=== PATIENT | female | born 1975 | race Caucasian/White ===

== ENCOUNTER 2017-03-18 21:52 | Emergency (ER) | payer MEDICAID ==
[~2017-03-18] VITALS: Ht 157.5 cm; Wt 86.2 kg
[2017-03-18 22:19] VITALS: BP 123/76
[2017-03-18 22:24] VITALS: BP 123/76
--- NOTE | 2017-03-18 22:25 | NUR ---
SENT BACK TO [facility] IN STABLE CONDITION, A/W FOR BED, ERMS NOTED
--- NOTE | 2017-03-19 01:00 | NUR ---
PATIENT CALLED FOR BED, NO ANSWER.
--- NOTE | 2017-03-19 01:10 | NUR ---
FOR THE SECOND TIME , NO RESPONSE
--- NOTE | 2017-03-19 01:20 | NUR ---
PATIENT CALLED FOR THE THIRD TIME, NO RESPONSE.PATIENT LEFT WITHOUT BEING SEEN BY DR. GUILLEN. NO FURTHER CARE PROVIDED FOR PATIENT.
== END 2017-03-19 01:20 | disposition left against medical advice (07) ==
LOC: MED 21:52
DX: R05 Cough (principal); R09.89 Other specified symptoms and signs involving the circulatory and respiratory systems; Z53.21 Procedure and treatment not carried out due to patient leaving prior to being seen by health care provider

== ENCOUNTER 2017-09-22 22:31 | Emergency (ER) | payer MEDICAID ==
[~2017-09-22] VITALS: Ht 157.5 cm; Wt 94.8 kg
[2017-09-22 22:39] VITALS: BP 148/71
--- NOTE | 2017-09-22 22:42 | NUR ---
PATIENT PRESENTS TO ED WITH RLQ PAIN RADIATING TO RIGHT LOWER BACK X2 DAYS WITH NAUSEA. PT DENIES V/D; SKIN IS PINK/WARM/DRY; AAOX4 WITH EVEN AND STEADY GAIT; LUNGS CLEAR BL; HR EVEN AND REGULAR; PT DENIES ANY FEVER, CP, SOB, OR COUGH AT THIS TIME; PATIENT STATES PAIN OF 7/10 AT THIS TIME; VSS; PATIENT POSITIONED FOR COMFORT; HOB ELEVATED; BEDRAILS UP X2; BED DOWN. ER MD MADE AWARE OF PT STATUS. CONTINUE TO MONITOR.
--- NOTE | 2017-09-22 22:42 | NUR ---
TO BED #5 AMB, REPORT GIVEN TO PILO SKELTON.
--- NOTE | 2017-09-23 00:17 | NUR ---
Dr. Schultz evaluating patient at bedside.
[2017-09-23] MEDS ORDERED: KETOROLAC 30 MG/ML VIAL IM ONE (00:25)
[2017-09-23] MEDS ORDERED: cefTRIAXone 1,000 MG in LIDOCAINE MPF 1% - **ER/OR** 2.1 ML IM ONE (00:25)
[2017-09-23 01:05] VITALS: BP 137/97
--- NOTE | 2017-09-23 01:05 | NUR ---
Patient discharged with v/s stable. Written and verbal after care instructions given and explained. Patient alert, oriented and verbalized understanding of instructions. Ambulatory with steady gait. All questions addressed prior to discharge. ID band removed. Patient advised to follow up with PMD. Rx of Ibuprofen and Cipro given. Patient educated on indication of medication including possible reaction and side effects. Opportunity to ask questions provided and answered.
--- NOTE | 2017-09-26 11:30 | NUR ---
CALLED AT 1132 AM ON 09/26/2017 LEFT VOICE MAIL.
== END 2017-09-23 01:05 | disposition home or self-care (01) ==
LOC: MED 22:31
DX: N12 Tubulo-interstitial nephritis, not specified as acute or chronic (principal); I10 Essential (primary) hypertension
CPT/HCPCS: 81002; 81025; 87086; 87186; 96372; 99284; J0696; J1885; J2001

== ENCOUNTER 2017-12-28 09:00 | Inpatient (IN) | payer MEDICAID ==
[~2017-12-28] VITALS: Ht 157.5 cm; Wt 93.9 kg
[2017-12-28 09:05] VITALS: BP 147/86
--- NOTE | 2017-12-28 09:15 | NUR ---
PT. CAME INTO THE ED DUE TO UMBILICAL PAIN X LAST NIGHT. PT. DENIES ANY N/V/D. PT STATES " I FEEL PRESSURE WHEN I TRY TO GO POOP BUT I WENT YESTERDAY". RR EVEN AND UNLABORED. PT. HAS 9/10 PAIN IN UMBILICAL REGION THAT IS NON RADIAITING AND CONSTANT SINCE LAST NIGHT. ABD IS ROUND AND SOFT AND TENDER UPON PALPATION OF UMBILICAL REGION. ER MD NOTIFIED. WILL CONTINUE TO MONITOR. SAFETY PRECAUTIONS INITIATED.
[2017-12-28] MEDS ORDERED: KETOROLAC 30 MG/ML VIAL IVP ONE (09:30)
--- NOTE | 2017-12-28 09:34 | NUR ---
PT. TAKEN TO CT SCAN VIA WHEELCHAIR AT THIS TIME.
--- NOTE | 2017-12-28 09:42 | NUR ---
returned from ct via [facility]
[2017-12-28 10:11] LABS: BASOPHILS # (AUTO) 0.1 K/uL (0.00-0.22); BASOPHILS % (AUTO) 0.3 % (0.0-2.0); EOSINOPHILS % (AUTO) 0.2 % (0.0-4.0); HEMATOCRIT 42.6 % (36-48); HEMOGLOBIN 13.8 g/dL (12.0-16.0); LYMPHOCYTES # (AUTO) 2.2 K/uL (2.5-16.5); LYMPHOCYTES % (AUTO) 12.6 % (20.5-51.1); MEAN CORPUSCULAR HEMOGLOBIN 28 pg (27-31); MEAN CORPUSCULAR HGB CONC 32 g/dL (33-37); MEAN CORPUSCULAR VOLUME 85.1 fL (80-94); MONOCYTES # (AUTO) 0.8 K/uL (0.8-1.0); MONOCYTES % (AUTO) 4.8 % (1.7-9.3); NEUTROPHILS # (AUTO) 13.9 K/uL (1.8-7.7); NEUTROPHILS % (AUTO) 82.1 % (42.2-75.2); PLATELET COUNT (AUTO) 309 K/uL (140-450); RED BLOOD CELL COUNT(AUTO) 5.01 MIL/uL (4.20-5.40); RED CELL DISTRIBUTION WIDTH 15.1 % (11.6-13.7)
[2017-12-28 10:15] LABS: APPEARANCE,URINE HAZY (CLEAR); BILIRUBIN,URINE NEGATIVE (NEGATIVE); BLOOD, URINE 1+ (NEGATIVE); COLOR,URINE YELLOW (YELLOW); LEUKOCYTE ESTERASE ,URINE 1+ (NEGATIVE); NITRITE, URINE NEGATIVE (NEGATIVE); PH,URINE 6.5 (5.0-9.0); UGLUCOSE NEGATIVE (NEGATIVE)
[2017-12-28 10:48] LABS: RBC,URINE 0-5 (RARE) /HPF (0-5)
[2017-12-28 10:49] LABS: WBC,URINE 0-5 (RARE) /HPF (0-5)
--- NOTE | 2017-12-28 10:50 | NUR ---
PT. RESTING COMFORTABLY IN BED, RR EVEN AND UNLABORED. VSS. WILL CONTINUE TO MONITOR
[2017-12-28 11:01] LABS: ALBUMIN 3.6 g/dL (3.4-5.0); ANION GAP 9.3 (8-16); CARBON DIOXIDE 26.9 mmol/L (21-32); CREATININE 1.1 mg/dL (0.6-1.3); POTASSIUM 4.2 mmol/L (3.5-5.1); TOTAL BILIRUBIN 0.8 mg/dL (0.0-1.0)
--- NOTE | 2017-12-28 11:44 | NUR ---
ULTRASOUND AT BEDSIDE AT THIS TIME. WILL CONTINUE TO MONITOR
--- NOTE | 2017-12-28 12:43 | NUR ---
PT. RESTING COMFORTABLY IN BED, RR EVEN AND UNLABORED. PROVIDED WITH A CUP OF WATER, TOLERATED WELL. WILL CONTINUE TO MONITOR. VSS
[2017-12-28] MEDS ORDERED: PIPERACILLIN/TAZOBACTAM 3.375 GM in DEXTROSE 5% 50 ML IV ONE (13:05)
[2017-12-28] MEDS ORDERED: MORPHINE SULFATE 4 MG/ML SYR IVP ONE (13:05)
[2017-12-28] MEDS ORDERED: ONDANSETRON 4 MG/2 ML VIAL IVP ONE (13:05)
[2017-12-28] MEDS ORDERED: PIPERACILLIN/TAZOBACTAM 3.375 GM VIAL IV ONE (13:12)
[2017-12-28] MEDS ORDERED: LORazepam 2 MG/ML VIAL IM/IVP PRN (13:40)
[2017-12-28] MEDS ORDERED: DOCUSATE SODIUM 100 MG GELCAP PO PRN (13:40)
[2017-12-28] MEDS ORDERED: ONDANSETRON 4 MG/2 ML VIAL IM/IVP PRN (13:40)
--- NOTE | 2017-12-28 13:41 | NUR ---
pt. resting comfortably in bed, rr even and unlabored. vss. will continue to monitor.
--- NOTE | 2017-12-28 14:06 | NUR ---
Patient will be admitted to care of dr. gaming . Admited to MED SURG . Will go to room 105A. Belongings list completed. Report to COSTA SANCHEZ .
[2017-12-28 14:07] LABS: PROTHROMBIN TIME 9.2 secs (10.8-13.4)
--- NOTE | 2017-12-28 14:08 | NUR ---
PT ARRIVED ON THE UNIT WITH 2 E/R NURSES. PT IN A WHEELCHAIR. AMBULATES WELL. STEADY GAIT. SKIN INTACT. IV ON L AC 22G SL. PT DENIES PAIN AT THIS TIME. PT STATES SHE IS THIRSTY. WILL SEE IF MD ORDERED A DIET. OFFERED HER SOME ICE CHIPS TO KEEP HER MOUTH MOIST. ADMINISTERED BROWN SOCKS. MRSA SCREENING DONE. WILL CONTINUE TO MONITOR PT.
[2017-12-28] MEDS: DEXT 5% / NACL 0.45% 1,000 ML IV PRN ×2 (14:29→22:57)
[2017-12-28 14:45] LABS: MAGNESIUM 2.2 mg/dL (1.8-2.4); PHOSPHORUS 2.6 mg/dL (2.5-4.9); THYROID STIMULATING HORMONE 1.25 uIU/mL (0.34-3.74)
[2017-12-28 15:00] VITALS: BP 113/72
[2017-12-28] MEDS ORDERED: METOPROLOL 25 MG TAB PO SCH (15:00)
--- NOTE | 2017-12-28 15:20 | NUR ---
SCHEDULED METOPROLOL ORDERED. CONSULTED WITH THE MD. BP LOW. LAST ONE AT 113/72. HOLD THE METOPROLOL PER MD.
[2017-12-28 16:00] VITALS: BP 118/65
[2017-12-28] MEDS: PIPER/TAZO 3.375GM/D5W PREMIX 50 ML IV SCH ×2 (17:57→23:01)
[2017-12-28] MEDS: HYDROcodone/APAP 5/325 MG 1 TAB TAB PO PRN ×2 (18:01→22:56)
--- NOTE | 2017-12-28 18:07 | NUR ---
ADMINISTERED NORCO FOR MODERATE PAIN 5/10 AND ZOSYN, SCHEDULED ABX. PT TOLERATED WELL. PT GETTING A CLEAR LIQ DIET. WILL BE NPO AT MIDNIGHT. WILL ENDORSE.
[2017-12-28] MEDS: ACETAMINOPHEN 325 MG TAB PO PRN (18:51)
--- NOTE | 2017-12-28 18:51 | NUR ---
PT C/O BEING HOT. CHECKED TEMP ORAL 100.4F. ADMINISTERED TYLENOL. STARTED COOLING MEASURES. WILL CONTINUE TO MONITOR PT.
--- NOTE | 2017-12-28 19:30 | NUR ---
RECEIVED BEDSIDE REPORT FROM RN LAURA, PT AWAKE IN BED, NOTED TO BE SWEATING AND STATES "I FEEL HOT". PT TEMP 99.9 F. IV IN L AC, 22G, INFUSING D5 AND 1/2 NS AT 120 ML/HR. PT ON RA, DENIES PAIN AT THIS TIME, ABLE TO MAKE NEEDS KNOWN. UPDATED BOARD, CALL LIGHT WITHIN REACH. EXPLAINED PLAN OF CARE. WILL CONTINUE TO MONITOR.
--- NOTE | 2017-12-28 20:00 | NUR ---
URINE SAMPLE COLLECTED AND SENT TO LAB. URINE DARK YELLOW IN COLOR.
[2017-12-28] MEDS ORDERED: ZOLPIDEM 5 MG TAB PO PRN (21:00)
[2017-12-28 21:58] LABS: BARBITURATE, URINE NEG. ng/ml (NEG <=200); BENZODIAZEPINE, URINE NEG. ng/mL (NEG <=200); CANNABINOID, URINE NEG. ng/mL (NEG <=50); COCAINE, URINE NEG. ng/mL (NEG <=300); OPIATE, URINE POS. ng/mL (NEG <=2000); PHENCYCLIDINE SCREEN,URINE NEG. ng/mL (NEG <=25)
--- NOTE | 2017-12-28 22:56 | NUR ---
PT C/O PAIN 6/10 IN ABDOMEN, WILL MEDICATE ACCORDING TO MD ORDER.
[2017-12-29] VITALS: BP 128/66
--- NOTE | 2017-12-29 | NUR ---
PT PLACED ON NPO STATUS, NO SCHEDULE FOR SX, CHARGE NURSE AWARE, WILL ENDORSE TO DAY SHIFT NURSE TO COMPLETE PRE OP CHECK LIST AND HAVE PT SIGN CONSENT FOR SURGERY ONCE PT IS SCHEDULED FOR SURGERY.
--- NOTE | 2017-12-29 02:30 | NUR ---
PT AMBULATED TO RESTROOM, URINATED X 1. STEADY GAIT. HELPED BACK INTO BED, CALL LIGHT WITHIN REACH, WILL CONTINUE TO MONITOR.
--- NOTE | 2017-12-29 04:30 | NUR ---
PT ASLEEP IN BED NO SIGNS OF DISTRESS, WILL CONTINUE TO MONITOR.
[2017-12-29] MEDS: PIPER/TAZO 3.375GM/D5W PREMIX 50 ML IV SCH ×4 (05:00→23:06)
--- NOTE | 2017-12-29 05:00 | NUR ---
DUE MEDICATION GIVEN, CALL LIGHT WITHIN REACH, WILL CONTINUE TO MONITOR.
--- NOTE | 2017-12-29 07:22 | NUR ---
RECEIVED REPORT FROM THE BAKERY WORKER NURSE AT BEDSIDE FOR CONTINUITY OF CARE. PT IS SLEEPING. NO SIGNS OF DISTRESS. WILL COME BACK AND ASSESS PT.
[2017-12-29 07:23] LABS: CHOL/HDL RATIO 2.7 (1-4.5)
--- NOTE | 2017-12-29 07:33 | NUR ---
ENDORSED PT TO DAY SHIFT NURSE, PT STABLE.
--- NOTE | 2017-12-29 07:52 | NUR ---
PT'S V/S WITHIN NORMAL RANGE. HAD TO GO TO THE BATHROOM SO I DC'D THE IVF. NO BM BUT URINATED. ASSISTED BACK TO BED. RECONNECTED PT TO THE IVF. PT BACK IN BED, COMFORTABLE. IV SITE IS LAC 22G D5 1/2 NS @ 120ML/HR. PT IS AOX4, AMBULATING WELL. SKIN INTACT. LBM 12/27. SOME ABD DISCOMFORT BUT REFUSES PAIN MED. TOLERABLE. PLAN FOR TODAY: DR MALDONADO WOULD LIKE TO MONITOR LABS AND SEE IF SHE DOES NEED SURGERY OR NOT. WILL CONTINUE TO MONITOR PT.
[2017-12-29 08:00] VITALS: BP 103/56
[2017-12-29 08:22] LABS: T4 (THYROXINE) 7.6 ug/dL (4.5-12.0)
--- NOTE | 2017-12-29 08:37 | NUR ---
PATIENT HAS BEEN SCREENED AND CATEGORIZED HIGH NUTRITION RISK. PATIENT WILL BE SEEN WITHIN 1-2 DAYS OF ADMISSION. 12/29/17 12/30/[address]
[2017-12-29] MEDS ORDERED: METOPROLOL 25 MG TAB PO SCH (09:00)
--- NOTE | 2017-12-29 09:04 | NUR ---
CM NOTE ADMISSION CHART REVIEW DONE. INITIAL REVIEW FAXED TO [facility] [phone] [place] PH# [phone] AND TO [facility] [phone] PH# [phone].
[2017-12-29 10:42] LABS: BASOPHILS % (AUTO) 0.2 % (0.0-2.0); EOSINOPHILS # (AUTO) 0.1 K/uL (0-0.4); EOSINOPHILS % (AUTO) 0.8 % (0.0-4.0); HEMATOCRIT 38.3 % (36-48); HEMOGLOBIN 12.3 g/dL (12.0-16.0); MEAN CORPUSCULAR HEMOGLOBIN 28 pg (27-31); MEAN CORPUSCULAR HGB CONC 32 g/dL (33-37); MONOCYTES # (AUTO) 1.4 K/uL (0.8-1.0); MONOCYTES % (AUTO) 7.9 % (1.7-9.3); NEUTROPHILS # (AUTO) 14.4 K/uL (1.8-7.7); NEUTROPHILS % (AUTO) 80.1 % (42.2-75.2); PLATELET COUNT (AUTO) 276 K/uL (140-450); RED BLOOD CELL COUNT(AUTO) 4.46 MIL/uL (4.20-5.40); RED CELL DISTRIBUTION WIDTH 15.1 % (11.6-13.7)
[2017-12-29 10:57] LABS: MAGNESIUM 2.1 mg/dL (1.8-2.4); PHOSPHORUS 2.2 mg/dL (2.5-4.9)
[2017-12-29] MEDS: HYDROcodone/APAP 5/325 MG 1 TAB TAB PO PRN (11:00)
--- NOTE | 2017-12-29 11:00 | NUR ---
PT C/O PAIN. ADMINISTERED NORCO AND COLACE. PT TOLERATED WELL. WILL CONTINUE TO MONITOR PT.
[2017-12-29] MEDS ORDERED: SODIUM PHOS / POTASSIUM PHOS 1 PKT PDR PO SCH (12:30)
--- NOTE | 2017-12-29 12:57 | NUR ---
DR MALDONADO WAS HERE TO ASSESS PT. ORDERED ANOTHER CT OF ABD W/ CONTRAST TO DETERMINE IF SHE REALLY DOES NEED SURGERY. ADMINISTERED NEUTRA PHOS. EDUCATED PT ABOUT PAIN MANAGEMENT. WILL CONTINUE TO MONITOR PT.
[2017-12-29 13:15] LABS: ANION GAP 6.3 (8-16); CARBON DIOXIDE 28.2 mmol/L (21-32); CREATININE 1.3 mg/dL (0.6-1.3); POTASSIUM 3.5 mmol/L (3.5-5.1)
[2017-12-29] MEDS ORDERED: MORPHINE SULFATE 2 MG/ML SYR IVP PRN (13:35)
[2017-12-29] MEDS ORDERED: SIMETHICONE 80 MG TAB.CHEW PO SCH (14:00)
--- NOTE | 2017-12-29 14:35 | NUR ---
12/29/17 RD INITIAL ASSESSMENT COMPLETED PLEASE REFER TO NUTRITION ASSESSMENT UNDER CARE ACTIVITY FOR ESTIMATED NUTRITIONAL NEEDS. 1. CONTINUE NPO DIET MEDICALLY ADVISED 2. WHEN MEDICALLY CLEARED RECOMMEND CARDIAC DIET 3. RD TO FOLLOW-UP 3-5 DAYS, MODERATE RISK BIJU SMITH, RD
--- NOTE | 2017-12-29 14:55 | NUR ---
CONSENT FORM FOR CT W/ CONTRAST SIGNED AND IN THE CHART. Addendum: 12/29/17 at 1544 by Paty Ang RN IV STARTED ON L AC 20G FOR THE PROCEDURE. PT TOLERATED WELL.
--- NOTE | 2017-12-29 15:10 | NUR ---
WENT TO RADIOLOGY TO HAVE CT ABD W/ CONTRAST. PT IN STABLE CONDITION. Addendum: 12/29/17 at 1653 by Paty Ang RN WRONG TIME. ACTUAL TIME 1610. Addendum: 12/29/17 at 1658 by Paty Ang RN WRONG TIME. ACTUAL TIME 1620...
--- NOTE | 2017-12-29 15:41 | NUR ---
CALLED RADIOLOGY TO LET THEM KNOW THAT PT HAS A IV SITE L 20G SL AND CONSENT FORM SIGNED AND IN CHART.
[2017-12-29 16:00] VITALS: BP 105/57
--- NOTE | 2017-12-29 16:35 | NUR ---
CT ABD W/ CONTRAST DONE. PT REQUESTS WATER. ASKED DR HERNANDEZ RE DIET. PER , KEEP PT NPO. ONCE RESULTS COME IN, CONTACT DR MALDONADO. HE MAY TAKE PT TO THE OR FOR SURGERY, DEPENDING ON RESULTS. WILL KEEP MONITORING FOR RESULTS. FAMILY VISITING.
--- NOTE | 2017-12-29 17:30 | NUR ---
CHECKED ON PT. PT C/O PAIN. ASKED IF SHE WANTED ANOTHER PAIN RELIEVER OR ATIVAN. PT REFUSED. WILL CONTINUE TO MONITOR PT.
--- NOTE | 2017-12-29 18:50 | NUR ---
RESULTS OF CT WAS BROUGHT OVER BY LEGUILLON DEBEADER. GAVE REPORT TO DR COLE. DR COLE CALLED DR MALDONADO AND READ THE REPORT TO HIM. WILL AWAIT ORDERS.
--- NOTE | 2017-12-29 19:20 | NUR ---
ENDORSED PT TO THE CRACKLING PRESS OPERATOR NURSE AT BEDSIDE FOR CONTINUITY OF CARE. PT IS IN STABLE CONDITION.
--- NOTE | 2017-12-29 19:20 | NUR ---
RECEIVED BEDSIDE REPORT FROM DAY SHIFT RN, PT CRYING IN BED, ASKED WHY SHE IS CRYING, PT STATED "IM HUNGRY, I WANT TO EAT, IM IN PAIN, IM TIRED". EXPLAINED PLAN OF CARE, OFFERED PAIN MEDICATION. PT REFUSED PAIN MEDIATION. OFFERED WATER, OFFERED TO REPOSITION THE PT. PT ON RA, LEFT AC 22 G INFUSING D5 AND 1/2 NS, IV IN LEFT INNER ARM 22G, SL, DRESSING INTACT, PATENT. PT ON RA, UPDATED BORED, V/S ASSESSED. TEMP 101.3 HR 105. WILL MEDICATE WITH TYLENOL ACCORDING TO MD ORDER. CALL LIGHT WITH IN REACH, WILL CONTINUE TO MONITOR.
[2017-12-29] MEDS ORDERED: KETOROLAC 30 MG/ML VIAL IVP PRN (19:35)
[2017-12-29] MEDS: ACETAMINOPHEN 325 MG TAB PO PRN (19:50)
--- NOTE | 2017-12-29 19:50 | NUR ---
ADMINISTERED 650 MG TYLENOL FOR FEVER OF 101.3 F. WILL CONTINUE TO MONITOR.
--- NOTE | 2017-12-29 20:17 | NUR ---
PT C/O PAIN OFFERED TORADOL FOR BREAK THROUGH PAIN, MEDICATED WITH TORADOL ACCORDING TO MD ORDER.
--- NOTE | 2017-12-29 20:36 | NUR ---
DR MALDONADO AT BEDSIDE, EXPLAINED PLAN OF SX I&D. WILL HAVE PT SIGN CONSENT AND COMPLETE PRE-OP CHECKLIST, PT TO BE NPO AFTER MIDNIGHT. PT TO HAVE CT SCAN WITHOUT CONTRAST OF ABDOMEN AND PELVIS. PT ON , PT LEFT UNIT. Addendum: 12/29/17 at 2211 by Jihan Mejia RN WRONG PT DR MALDONADO AT BEDSIDE. BUT DID NOT MENTION SX.
--- NOTE | 2017-12-29 20:50 | NUR ---
PT BACK ON UNITSL. WILL CONTINUE TO MONITOR. Addendum: 12/29/17 at 2211 by Jihan Mejia RN WRONG PT. DISREGARD.
--- NOTE | 2017-12-29 23:35 | NUR ---
DUE ANTIBIOTIC GIVEN PT TOLERATED WELL, WILL CONTINUE TO MONITOR.
[2017-12-29 23:36] VITALS: BP 126/72
--- NOTE | 2017-12-29 23:40 | NUR ---
PT TEMP 97.0 HR 88. WILL CONTINUE TO MONITOR.
--- NOTE | 2017-12-30 02:00 | NUR ---
PT RESTING IN BED NO SIGNS OF DISTRESS, WILL CONTINUE TO MONITOR.
[2017-12-30] MEDS: PIPER/TAZO 3.375GM/D5W PREMIX 50 ML IV SCH ×2 (05:07→12:04)
--- NOTE | 2017-12-30 05:07 | NUR ---
PT SLEEPING IN BED, DUE ANTIBIOTIC WILL BE GIVEN. WILL CONTINUE TO MONITOR.
[2017-12-30 06:47] LABS: BASOPHILS % (AUTO) 0.2 % (0.0-2.0); EOSINOPHILS # (AUTO) 0.1 K/uL (0-0.4); EOSINOPHILS % (AUTO) 1.3 % (0.0-4.0); HEMATOCRIT 37.4 % (36-48); LYMPHOCYTES # (AUTO) 1.4 K/uL (2.5-16.5); LYMPHOCYTES % (AUTO) 13.8 % (20.5-51.1); MEAN CORPUSCULAR HEMOGLOBIN 28 pg (27-31); MEAN CORPUSCULAR HGB CONC 32 g/dL (33-37); MEAN CORPUSCULAR VOLUME 85.7 fL (80-94); MONOCYTES % (AUTO) 9.8 % (1.7-9.3); NEUTROPHILS # (AUTO) 7.7 K/uL (1.8-7.7); NEUTROPHILS % (AUTO) 74.9 % (42.2-75.2); PLATELET COUNT (AUTO) 279 K/uL (140-450); RED BLOOD CELL COUNT(AUTO) 4.36 MIL/uL (4.20-5.40); WHITE BLOOD COUNT (AUTO) 10.3 K/uL (4.8-10.8)
[2017-12-30 07:00] LABS: ANION GAP 6.8 (8-16); CARBON DIOXIDE 27.4 mmol/L (21-32); CREATININE 1.1 mg/dL (0.6-1.3); POTASSIUM 3.2 mmol/L (3.5-5.1)
[2017-12-30 07:06] LABS: MAGNESIUM 2.2 mg/dL (1.8-2.4); PHOSPHORUS 2.2 mg/dL (2.5-4.9)
--- NOTE | 2017-12-30 07:26 | NUR ---
ENDORSED PT DAY SHIFT NURSE. PT STABLE.
--- NOTE | 2017-12-30 07:29 | NUR ---
RECEIVED PT FROM EDGE GLUE MACHINE TENDER NURSE, SUMMER, PT IS ASLEEP LYING ON THE BED WITH MOTOR EQUIPMENT COMMANDING OFFICER AILS UP AND CALL LIGHT WITHIN REACH, BED IN LOW POSITION AND SAFETY PRECAUTION ENFORCED. PT HAS TWO IV LINES PLACED, ONE IN THE LEFT AC G. 20, INTACT ON SALINE LOCK, AND THE OTHER IV LINE IS ON THE LEFT FA G. 22 WITH D5 1/2 NS AT 120ML/HR RUNNING AND INTACT. RESPIRATION EVEN AND PT HAS NO SIGN OF DISTRESS NOTED. WILL CONTINUE TO MONITOR PT.
--- NOTE | 2017-12-30 07:35 | NUR ---
RECEIVED PT FROM SENIOR DESIGNER/ART DIRECTOR NURSE, AGUSTÍN, PT IS ASLEEP, 1:1 SITTER ON THE BEDSIDE. SUICIDE AND SAFETY PRECAUTION ENFORCED. RESPIRATIONS EVEN AND NO SIGN OF DISTRESS NOTED, BED IN LOW POSITION. PT HAS AN IV LINE ON SALINE LOCK ON THE RT FA G.20, INTACT. WILL CONTINUE TO MONITOR PT. Addendum: 12/30/17 at 1025 by Coral Bansal RN ABOVE NOTES WAS NOT FOR THE ABOVE NAMED PT.
[2017-12-30 08:00] VITALS: BP 107/54
--- NOTE | 2017-12-30 08:00 | NUR ---
PT IS AWAKE AND VITAL SIGNS WERE TAKEN AND ARE ALL WITHIN NORMAL LIMITS AND STABLE. PT DENIES PAIN AT THIS TIME. WILL CONTINUE TO MONITOR PT
[2017-12-30] MEDS ORDERED: SODIUM PHOS / POTASSIUM PHOS 1 PKT PDR PO SCH (08:15)
[2017-12-30] MEDS: CYCLOBENZAPRINE 10 MG TAB PO SCH ×2 (08:27→12:04)
--- NOTE | 2017-12-30 09:15 | NUR ---
PT VERBALIZED THAT SHE AGREES TO HAVE AN ULTRASOUND DONE TO HER, ACKNOWLEDGED AND WILL INFORM THE MD. Addendum: 12/30/17 at 1025 by Coral Bansal RN ABOVE NOTES WAS NOT FOR THE ABOVE NAMED PT.
--- NOTE | 2017-12-30 09:18 | NUR ---
INFORMED DR. COLE THAT THE PT SAID THAT SHE WANTS TO HAVE AN ULTRASOUND DONE TO HER TODAY, SAID THAT HE WILL PLACE THE ORDER. Addendum: 12/30/17 at 1026 by Coral Bansal RN ABOVE NOTES WAS NOT INTENDED FOR THE ABOVE NAMED PT.
--- NOTE | 2017-12-30 09:20 | NUR ---
CALLED RADIOLOGY AND SPOKE TO ROMI AND INFORMED HER ABOUT THE TRANSVAGINAL ULTRASOUND ORDERED FOR THE PT. ROMI ACKNOWLEDGED AND SAID THAT SHE WILL INFORM THE FORCE DISPATCHER. Addendum: 12/30/17 at 1024 by Coral Bansal RN ABOVE NOTES WAS NOT FOR THE NAMED PT.
--- NOTE | 2017-12-30 09:22 | NUR ---
PT LABS WERE SEEN AND PT'S K LEVEL IS 3.2 AND IS ON THE LOW SIDE, INFORMED DR. COLE ABOUT THE PT'S LOW K LEVEL AND MD SAID THAT HE WILL PLACE AN ORDER. ACKNOWLEDGED AND WILL FOLLOW THROUGH WITH THE ORDER.
--- NOTE | 2017-12-30 10:30 | NUR ---
ASSISTED PT TO THE BATHROOM AND ASSISTED BACK TO THE BED AND MADE COMFORTABLE.
--- NOTE | 2017-12-30 10:35 | NUR ---
CM NOTE CONCURRENT REVIEW FAXED TO [facility] [phone] [place] PH# [phone] AND TO [facility] [phone] PH# [phone].
--- NOTE | 2017-12-30 10:47 | NUR ---
DR. MALDONADO CAME TO THE PT'S ROOM AND CHECKED ON THE PT AND ASKED THE PT OF HER CONDITION AND PT VERBALIZED THAT SHE FEELS BETTER. INFORMED DR. MALDONADO THAT PT TOLERATED THE DIET WELL AND THAT PT AMBULATED AND VERBALIZED THAT SHE FEEL FINE TODAY, DR. MALDONADO ACKNOWLEDGED. WILL FOLLOW THROUGH WITH FURTHER ORDER FROM .
--- NOTE | 2017-12-30 12:07 | NUR ---
PT IS AWAKEN AND LUNCH WAS SERVED, ORAL MEDICATION GIVEN ALSO WELL THE ZOSYN IVPB, PT TOLERATED IT AND WILL CONTINUE TO MONITOR PT.
--- NOTE | 2017-12-30 12:24 | NUR ---
SPOKE TO DR. COLE ABOUT THE SCHEDULED K-DUR TABLETS FOR THE PT FOR [place] BUT PT HAS A DISCHARGE ORDER TODAY, DR. COLE SAID THAT HE WILL MODIFY THE SCHEDULE SO THAT THE PT CAN RECEIVE THE K-DUR TABS BEFORE SENDING THE PT HOME. ACKNOWLEDGED AND WILL FOLLOW THROUGH WITH THE ORDER.
[2017-12-30] MEDS ORDERED: POTASSIUM CHLORIDE 10 MEQ TABER PO SCH (13:00)
--- NOTE | 2017-12-30 13:15 | NUR ---
PT IS AWAKE AND INFORMED THAT K LEVEL IS 3.2 AND MD PRESCRIBED K-DUR TABLETS FOR HER. GAVE ORAL MEDICCATIONS AND PT TOLERATED IT. WILL FACILITATE DISCHARGE PROCESS.
--- NOTE | 2017-12-30 14:01 | NUR ---
ULTRASOUND OF THE PELVIS IS BEING DONE TO THE PT NOW. PT IS CALM AND COMPLIANT. Addendum: 12/30/17 at 1402 by Coral Bansal RN WRONG PT INFORMATION
[2017-12-30] MEDS ORDERED: LACT10CA1 PO (14:18)
[2017-12-30] MEDS ORDERED: CEPH250C16 PO (14:18)
--- NOTE | 2017-12-30 14:50 | NUR ---
DISCHARGED PT WITH THE MOTHER VIA WHEELCHAIR, DISCHARGE TEACHINGS, INSTRUCTIONS AND PRESCRIPTION WAS GIEVN TO PT AND PT VERBALIZED UNDERSTANDING. IV LINE AND ARM BAND REMOVED. PT DENIES PAIN AND PT IS STABLE AT THIS TIME.
[2017-12-31] MEDS ORDERED: POTASSIUM CHLORIDE 10 MEQ TABER PO SCH (09:00)
== END 2017-12-30 14:50 | disposition home or self-care (01) | DRG 720 ==
LOC: MED 09:00 → MTU 13:42
PROVIDERS: ADMIT General Practice; ATTEND General Practice
DX: A41.9 Sepsis, unspecified organism (principal); E66.01 Morbid (severe) obesity due to excess calories; E87.1 Hypo-osmolality and hyponatremia; E83.39 Other disorders of phosphorus metabolism; R16.0 Hepatomegaly, not elsewhere classified; I10 Essential (primary) hypertension; N39.0 Urinary tract infection, site not specified; F15.90 Other stimulant use, unspecified, uncomplicated; N88.8 Other specified noninflammatory disorders of cervix uteri; D25.9 Leiomyoma of uterus, unspecified; K80.20 Calculus of gallbladder without cholecystitis without obstruction; N20.0 Calculus of kidney; Z68.37 Body mass index [BMI] 37.0-37.9, adult; Z98.51 Tubal ligation status; Z90.89 Acquired absence of other organs; Z82.49 Family history of ischemic heart disease and other diseases of the circulatory system; Z91.14 Patient's other noncompliance with medication regimen
CPT/HCPCS: 36415; 71045; 76705; 76830; 80048; 80053; 80305; 81001; 83036; 83605; 83690; 83735; 83880; 84100; 84134; 84436; 84443; 84484; 85025; 85610; 85730; 87040; 87081; 87086; 93005; 96365; 96375; 99291; J1885; J2270; J2405; J2543; Q0092; Q9967

== ENCOUNTER 2022-04-13 17:41 | Emergency (ER) | payer MEDICAID, OTHER ==
[~2022-04-13] VITALS: Ht 157.5 cm; Wt 108.4 kg
[~2022-04-13 17:41] MED LIST: CEPH250C16 PO; LACT10CA1 PO
[2022-04-13 18:04] VITALS: BP 143/94
[2022-04-13] MEDS ORDERED: ACETAMINOPHEN EXTRA STRENGTH 500 MG TAB PO ONE (18:10)
[2022-04-13] MEDS ORDERED: cefTRIAXone 1,000 MG in DEXT 5% MINI-BAG PLUS 50 ML IV ONE (18:15)
[2022-04-13] MEDS ORDERED: NACL 0.9% 2,000 ML IV SCH (18:15)
--- NOTE | 2022-04-13 18:30 | NUR ---
46F presents to ED with c/o fevers x1 day, RLQ ABD pain and urinary burning x 2 days. Pt reports a constant aching like, 8/10 nonradiating. Pt denies N/V/D or urinary frequency. Pt changed into gown, placed on bedside monitor, bed set to lowest position, side rails x 2.
[2022-04-13 18:41] LABS: APPEARANCE,URINE SL CLOUDY (CLEAR); BILIRUBIN,URINE NEGATIVE (NEGATIVE); BLOOD, URINE 2+ (NEGATIVE); COLOR,URINE BROWN (YELLOW); LEUKOCYTE ESTERASE ,URINE 3+ (NEGATIVE); NITRITE, URINE NEGATIVE (NEGATIVE); UGLUCOSE NEGATIVE (NEGATIVE)
[2022-04-13 18:41] LABS: BASOPHILS # (AUTO) 0.1 K/uL (0.00-0.22); BASOPHILS % (AUTO) 0.5 % (0.0-2.0); EOSINOPHILS % (AUTO) 0.1 % (0.0-4.0); HEMATOCRIT 42.1 % (36-48); HEMOGLOBIN 14.1 g/dL (12.0-16.0); LYMPHOCYTES # (AUTO) 2.8 K/uL (2.5-16.5); LYMPHOCYTES % (AUTO) 16.8 % (20.5-51.1); MEAN CORPUSCULAR HEMOGLOBIN 28 pg (27-31); MEAN CORPUSCULAR HGB CONC 34 g/dL (33-37); MEAN CORPUSCULAR VOLUME 83.1 fL (80-94); NEUTROPHILS # (AUTO) 11.8 K/uL (1.8-7.7); NEUTROPHILS % (AUTO) 70.6 % (42.2-75.2); PLATELET COUNT (AUTO) 324 K/uL (140-450); RED BLOOD CELL COUNT(AUTO) 5.06 MIL/uL (4.20-5.40); RED CELL DISTRIBUTION WIDTH 14.5 % (11.6-13.7); WHITE BLOOD COUNT (AUTO) 16.7 K/uL (4.8-10.8)
[2022-04-13 18:53] LABS: OTHER CASTS, URINE None Seen /LPF (None Seen); RBC,URINE 11-20 (MOD) /HPF (0-5)
[2022-04-13 19:02] LABS: ALBUMIN 3.5 g/dL (3.4-5.0); ANION GAP 11.4 (8-16); ASPARTATE AMINOTRANSFERASE 55 U/L (15-37); CARBON DIOXIDE 28.8 mmol/L (21-32); CHLORIDE 94 mmol/L (98-107); CREATININE 1.3 mg/dL (0.6-1.3); GFR ARICAN-AMERICAN 56 mL/min (>90); GLUCOSE 110 mg/dL (74-106); POTASSIUM 4.2 mmol/L (3.5-5.1); SODIUM SERUM 130 mmol/L (136-145); TOTAL BILIRUBIN 0.9 mg/dL (0.0-1.0); UREA NITROGEN, BLOOD 11 mg/dL (7-18)
--- NOTE | 2022-04-13 19:23 | NUR ---
Pt report given to COSTA Meyer. Transfer of care at this time.
[2022-04-13] MEDS ORDERED: cefTRIAXone 1,000 MG VIAL ONE (19:33)
--- NOTE | 2022-04-13 20:00 | NUR ---
PATIENT TAKEN TO CT
[2022-04-13] MEDS ORDERED: CEPH-588 PO (21:06)
[2022-04-13 22:32] VITALS: BP 120/76
== END 2022-04-13 22:32 | disposition home or self-care (01) ==
LOC: MED 17:41
DX: A41.9 Sepsis, unspecified organism (principal); N12 Tubulo-interstitial nephritis, not specified as acute or chronic; I10 Essential (primary) hypertension; Z98.890 Other specified postprocedural states
CPT/HCPCS: 36415; 71045; 74177; 80053; 81001; 81025; 83605; 84484; 85025; 87040; 87086; 93005; 96365; 99291; J0696; J7030; Q9967

== ENCOUNTER 2022-08-25 14:58 | Emergency (ER) | payer OTHER ==
[~2022-08-25] VITALS: Ht 157.5 cm; Wt 112.9 kg
[~2022-08-25 14:58] MED LIST changes: +CEPH-588 PO
[2022-08-25 15:39] VITALS: BP 170/145
--- NOTE | 2022-08-25 16:08 | NUR ---
TO ER BED 1
--- NOTE | 2022-08-25 16:09 | NUR ---
OUT OF LISINOPRIL X 10 DAYS
[2022-08-25] MEDS ORDERED: lisinopriL 20 MG TAB PO ONE (16:45)
--- NOTE | 2022-08-25 17:00 | NUR ---
ASSUMED PATIENT CARE, CONCUR WITH PREVIOUS ASSESSMENT.
[2022-08-25] MEDS ORDERED: NICARDIPINE HYDROCHLORIDE 25 MG in NACL 0.9% 240 ML IV ONE (19:20)
[2022-08-25 19:40] LABS: BASOPHILS # (AUTO) 0.1 K/uL (0.00-0.22); BASOPHILS % (AUTO) 0.5 % (0.0-2.0); EOSINOPHILS # (AUTO) 0.1 K/uL (0-0.4); EOSINOPHILS % (AUTO) 0.8 % (0.0-4.0); HEMOGLOBIN 15.4 g/dL (12.0-16.0); LYMPHOCYTES # (AUTO) 3.8 K/uL (2.5-16.5); LYMPHOCYTES % (AUTO) 30.5 % (20.5-51.1); MEAN CORPUSCULAR HEMOGLOBIN 28 pg (27-31); MEAN CORPUSCULAR HGB CONC 33 g/dL (33-37); MEAN CORPUSCULAR VOLUME 83.9 fL (80-94); MONOCYTES # (AUTO) 0.7 K/uL (0.8-1.0); MONOCYTES % (AUTO) 5.3 % (1.7-9.3); NEUTROPHILS # (AUTO) 7.9 K/uL (1.8-7.7); NEUTROPHILS % (AUTO) 62.9 % (42.2-75.2); PLATELET COUNT (AUTO) 355 K/uL (140-450); RED CELL DISTRIBUTION WIDTH 14.9 % (11.6-13.7); WHITE BLOOD COUNT (AUTO) 12.6 K/uL (4.8-10.8)
--- NOTE | 2022-08-25 19:42 | NUR ---
PATIENT RESTING IN BED, A/OX4, CHEST RISE AND FALL SYMMETRICAL, NO C/O PAIN OR S/S OF DISTRESS, ON MONITOR, BEDRAIL UP.
[2022-08-25] MEDS ORDERED: NICARDIPINE HYDROCHLORIDE 2.5 MG/ML VIAL IV ONE (19:48)
[2022-08-25 20:00] LABS: PROTHROMBIN TIME 9.5 secs (10.8-13.4)
[2022-08-25 20:11] LABS: ALBUMIN 3.8 g/dL (3.4-5.0); ANION GAP 9.6 (8-16); ASPARTATE AMINOTRANSFERASE 20 U/L (15-37); CARBON DIOXIDE 31.5 mmol/L (21-32); CHLORIDE 102 mmol/L (98-107); CREATININE 1.1 mg/dL (0.6-1.3); GFR ARICAN-AMERICAN 68 mL/min (>90); GLUCOSE 102 mg/dL (74-106); POTASSIUM 4.1 mmol/L (3.5-5.1); SODIUM SERUM 139 mmol/L (136-145); TOTAL BILIRUBIN 0.4 mg/dL (0.0-1.0); UREA NITROGEN, BLOOD 14 mg/dL (7-18)
--- NOTE | 2022-08-25 20:17 | NUR ---
Patient to be transferred to [facility]. Is being transferred due to higher level of care. Receiving facility has accepting physician and available space. ER physician has signed transfer form. Patient or responsible republican has agreed to transfer and signed form. Patient belongings inventoried and will be sent with patient. Copy of nursing notes, lab reports, EKG, Physicians Orders and X-rays to be sent with patient. Report called to [facility] ER Graciela SKELTON. [facility] ER Graciela SKELTON verbalized understanding of report, no further questions. [facility] ambulance service has been called for transfer and arrived for pickup/transfer to [facility]. [facility] Ambulance staff given report, [facility] Ambulance staff verbvalized understanding of report, no further questions. All documents given to [facility] staff for transfer, patient safely transfered to Ambulance.
[2022-08-25 20:24] VITALS: BP 129/75
[2022-08-25] MEDS ORDERED: LISI40TA8 PO (20:24)
== END 2022-08-25 20:17 | disposition short-term general hospital (02) ==
LOC: MED 14:58
DX: I60.9 Nontraumatic subarachnoid hemorrhage, unspecified (principal); I16.1 Hypertensive emergency; Z91.148 Patient's other noncompliance with medication regimen for other reason; Z79.899 Other long term (current) drug therapy
CPT/HCPCS: 36415; 70450; 80053; 84484; 85025; 85610; 85730; 96365; 99291; J7030

== ENCOUNTER 2023-06-27 21:32 | Emergency (ER) | payer OTHER ==
[~2023-06-27] VITALS: Ht 157.5 cm; Wt 112.9 kg
[~2023-06-27 21:32] MED LIST changes: -CEPH-588 PO; -CEPH250C16 PO; -LACT10CA1 PO; +LISI40TA8 PO
[2023-06-27 22:14] VITALS: BP 139/79; PULSE 92; RESP 19; TEMP 98.1; O2SAT 99
[2023-06-27] MEDS ORDERED: MIRABULK PO (23:57)
[2023-06-27] MEDS ORDERED: MAGN296S70 PO (23:57)
== END 2023-06-28 00:03 | disposition home or self-care (01) ==
LOC: MED 21:32
DX: K59.00 Constipation, unspecified (principal); R10.9 Unspecified abdominal pain; I10 Essential (primary) hypertension; Z79.899 Other long term (current) drug therapy
CPT/HCPCS: 74018; 99283

== ENCOUNTER 2023-07-05 06:58 | Inpatient (IN) | payer OTHER ==
[~2023-07-05] VITALS: Ht 170.2 cm; Wt 113.9 kg
[~2023-07-05 06:58] MED LIST changes: +MAGN296S70 PO; +MIRABULK PO
[2023-07-05 07:04] VITALS: BP 118/78; PULSE 93; RESP 20; TEMP 97.4; O2SAT 98
[2023-07-05] MEDS: MORPHINE SULFATE 4 MG/ML SYR IVP ONE ×2 (07:25→11:44)
[2023-07-05] MEDS: NACL 0.9% 1,000 ML IV ONE (08:40)
[2023-07-05] MEDS: ONDANSETRON 4 MG/2 ML VIAL IVP ONE (08:45)
[2023-07-05 08:52] LABS: APPEARANCE,URINE CLEAR (CLEAR); BILIRUBIN,URINE NEGATIVE (NEGATIVE); BLOOD, URINE TRACE-I (NEGATIVE); COLOR,URINE YELLOW (YELLOW); LEUKOCYTE ESTERASE ,URINE NEGATIVE (NEGATIVE); NITRITE, URINE NEGATIVE (NEGATIVE); PROTEIN,URINE NEGATIVE (NEGATIVE); UGLUCOSE NEGATIVE (NEGATIVE)
[2023-07-05 08:56] LABS: BASOPHILS # (AUTO) 0.1 K/uL (0.00-0.22); BASOPHILS % (AUTO) 0.6 % (0.0-2.0); EOSINOPHILS # (AUTO) 0.1 K/uL (0-0.4); EOSINOPHILS % (AUTO) 0.6 % (0.0-4.0); HEMATOCRIT 42.3 % (36-48); HEMOGLOBIN 13.7 g/dL (12.0-16.0); LYMPHOCYTES # (AUTO) 2.6 K/uL (2.5-16.5); LYMPHOCYTES % (AUTO) 18.3 % (20.5-51.1); MEAN CORPUSCULAR HEMOGLOBIN 27 pg (27-31); MEAN CORPUSCULAR HGB CONC 32 g/dL (33-37); MEAN CORPUSCULAR VOLUME 83.9 fL (80-94); MONOCYTES # (AUTO) 0.8 K/uL (0.8-1.0); MONOCYTES % (AUTO) 5.7 % (1.7-9.3); NEUTROPHILS # (AUTO) 10.8 K/uL (1.8-7.7); NEUTROPHILS % (AUTO) 74.8 % (42.2-75.2); PLATELET COUNT (AUTO) 410 K/uL (140-450); RED BLOOD CELL COUNT(AUTO) 5.04 MIL/uL (4.20-5.40); RED CELL DISTRIBUTION WIDTH 14.3 % (11.6-13.7); WHITE BLOOD COUNT (AUTO) 14.5 K/uL (4.8-10.8)
[2023-07-05 09:05] LABS: BACTERIA,URINE OCCASSIONAL /HPF (None Seen); RBC,URINE 0-5 /HPF (0-5); WBC,URINE 0-5 /HPF (0-5); YEAST,URINE Rare /HPF (None Seen)
[2023-07-05 09:06] LABS: SQUAMOUS EPITHELIAL CELL,UR 4-10 (MOD) /LPF (0-3 (FEW))
[2023-07-05 09:08] LABS: ANION GAP 11.7 (8-16); CALCIUM 9.3 mg/dL (8.5-10.1); CARBON DIOXIDE 32.2 mmol/L (21-32); CREATININE 1.2 mg/dL (0.6-1.3); POTASSIUM 3.9 mmol/L (3.5-5.1)
[2023-07-05 09:12] LABS: ALBUMIN 3.5 g/dL (3.4-5.0); BILIRUBIN,DIRECT 0.1 mg/dL (0.0-0.3); TOTAL BILIRUBIN 0.4 mg/dL (0.0-1.0); TOTAL PROTEIN, SERUM 7.4 g/dL (6.4-8.2)
[2023-07-05] MEDS ORDERED: cefTRIAXone 1,000 MG VIAL ONE (09:27)
[2023-07-05 10:07] LABS: INR 0.87 (0.8-1.2); PARTIAL THROMBOPLASTIN TIME 36.1 secs (22-35.6); PROTHROMBIN TIME 9.2 secs (10.8-13.4)
[2023-07-05] MEDS: metroNIDAZOLE 500 MG/NS PREMIX 100 ML IV ONE (10:15)
[2023-07-05] MEDS ORDERED: ONDANSETRON 4 MG/2 ML VIAL IVP PRN (11:05)
[2023-07-05] MEDS ORDERED: ACETAMINOPHEN 325 MG TAB PO PRN (11:05)
[2023-07-05] MEDS ORDERED: KCL 20 MEQ IN 100 mL PREMIX 200 ML IV PRN (11:05)
[2023-07-05] MEDS ORDERED: MAG SULF 2000 MG/WATER PREMIX 50 ML IV PRN (11:05)
[2023-07-05] MEDS ORDERED: POTASSIUM CHLORIDE 10 MEQ TABER PO PRN (11:05)
[2023-07-05] MEDS ORDERED: HYDROcodone/APAP 5/325 MG 1 TAB TAB PO PRN (11:05)
[2023-07-05] MEDS: NACL 0.9% 1,000 ML IV SCH (11:35)
[2023-07-05 12:30] VITALS: PULSE 76
[2023-07-05 12:54] VITALS: BP 106/44; PULSE 91; RESP 18; TEMP 98.2; O2SAT 93
[2023-07-05] MEDS: metroNIDAZOLE 500 MG/NS PREMIX 100 ML IV SCH (15:03)
[2023-07-05 16:39] VITALS: BP 93/59; PULSE 90; RESP 18; TEMP 97.3; O2SAT 96
[2023-07-05] MEDS: MORPHINE SULFATE 4 MG/ML SYR IVP PRN (18:59)
[2023-07-05 20:00] VITALS: BP 96/47; PULSE 89; RESP 18; TEMP 97.6; O2SAT 97
[2023-07-06 06:42] LABS: BASOPHILS % (AUTO) 0.3 % (0.0-2.0); EOSINOPHILS # (AUTO) 0.1 K/uL (0-0.4); EOSINOPHILS % (AUTO) 0.6 % (0.0-4.0); HEMATOCRIT 39.2 % (36-48); HEMOGLOBIN 12.6 g/dL (12.0-16.0); LYMPHOCYTES # (AUTO) 2.2 K/uL (2.5-16.5); LYMPHOCYTES % (AUTO) 16.7 % (20.5-51.1); MEAN CORPUSCULAR HEMOGLOBIN 27 pg (27-31); MEAN CORPUSCULAR HGB CONC 32 g/dL (33-37); MEAN CORPUSCULAR VOLUME 84.6 fL (80-94); MONOCYTES # (AUTO) 1.1 K/uL (0.8-1.0); MONOCYTES % (AUTO) 8.5 % (1.7-9.3); NEUTROPHILS # (AUTO) 9.5 K/uL (1.8-7.7); NEUTROPHILS % (AUTO) 73.9 % (42.2-75.2); PLATELET COUNT (AUTO) 386 K/uL (140-450); RED BLOOD CELL COUNT(AUTO) 4.64 MIL/uL (4.20-5.40); RED CELL DISTRIBUTION WIDTH 14.8 % (11.6-13.7); WHITE BLOOD COUNT (AUTO) 12.9 K/uL (4.8-10.8)
[2023-07-06 07:27] LABS: ALBUMIN 2.9 g/dL (3.4-5.0); ANION GAP 11.7 (8-16); CALCIUM 8.7 mg/dL (8.5-10.1); CARBON DIOXIDE 29.3 mmol/L (21-32); TOTAL BILIRUBIN 0.8 mg/dL (0.0-1.0); TOTAL PROTEIN, SERUM 6.5 g/dL (6.4-8.2)
[2023-07-06 08:00] VITALS: BP 115/72; PULSE 113; PULSE 95; RESP 18; RESP 20; TEMP 98.7; O2SAT 96; O2SAT 98
[2023-07-06] MEDS: ENOXAPARIN 40 MG/0.4 ML SYR SUBQ SCH (08:19)
[2023-07-06] MEDS ORDERED: ROCURONIUM 50 MG/5 ML VIAL IV ONE (10:34)
[2023-07-06] MEDS ORDERED: ONDANSETRON 4 MG/2 ML VIAL ONE (10:34)
[2023-07-06] MEDS ORDERED: DEXAMETHASONE 4 MG/ML VIAL ONE (10:34)
[2023-07-06] MEDS ORDERED: SUCCINYLCHOLINE CHLORIDE 200 MG/10 ML VIAL IVP ONE (10:34)
[2023-07-06] MEDS ORDERED: KETOROLAC 30 MG/ML VIAL ONE (10:34)
[2023-07-06] MEDS: PROPOFOL 200 MG/20 ML VIAL IV ONE (10:34)
[2023-07-06] MEDS ORDERED: SEVOFLURANE 250 ML BTL INH ONE (10:34)
[2023-07-06] MEDS: MIDAZOLAM 2 MG/2 ML VIAL ONE (10:35)
[2023-07-06] MEDS: fentaNYL citrate 0.05 MG/ML VIAL ONE (10:35)
[2023-07-06] MEDS: ceFAZolin 1,000 MG VIAL ONE (10:56)
[2023-07-06] MEDS: ceFAZolin 2,000 MG VIAL ONE (10:56)
[2023-07-06] MEDS: LIDOCAINE/EPI 1% 1:100000 20 ML VIAL INJ ONE (11:00)
[2023-07-06] MEDS: BUPIVACAINE-MPF 0.25% 30 ML VIAL INJ ONE (11:00)
[2023-07-06] MEDS ORDERED: ACETAMINOPHEN 100 ML IV PRN (12:15)
[2023-07-06] MEDS ORDERED: HYDROmorphone 1 MG/ML AMP IVP PRN (12:15)
[2023-07-06] MEDS ORDERED: diphenhydrAMINE 50 MG/ML VIAL IVP PRN (12:15)
[2023-07-06] MEDS ORDERED: MEPERIDINE 25 MG/ML SYR IVP PRN (12:15)
[2023-07-06] MEDS ORDERED: ONDANSETRON 4 MG/2 ML VIAL IVP PRN (12:15)
[2023-07-06 16:00] VITALS: BP 146/91; PULSE 88; RESP 18; TEMP 97.5; O2SAT 94
[2023-07-06 20:00] VITALS: PULSE 113; PULSE 96; RESP 18; O2SAT 98
[2023-07-06] MEDS: MEDS-TO-BEDS MC SCH (20:53)
[2023-07-07] VITALS (7 sets, daily range): BP systolic 110–131; BP diastolic 67–81; PULSE 86–104; RESP 16–18; TEMP 97.3–97.7; O2SAT 87–96
[2023-07-07 07:07] LABS: HEMATOCRIT 36.8 % (36-48); MEAN CORPUSCULAR HEMOGLOBIN 27 pg (27-31); MEAN CORPUSCULAR HGB CONC 33 g/dL (33-37); MEAN CORPUSCULAR VOLUME 83.8 fL (80-94); PLATELET COUNT (AUTO) 369 K/uL (140-450); RED BLOOD CELL COUNT(AUTO) 4.39 MIL/uL (4.20-5.40); RED CELL DISTRIBUTION WIDTH 14.5 % (11.6-13.7)
[2023-07-07 07:45] LABS: ALBUMIN 2.6 g/dL (3.4-5.0); CALCIUM 8.7 mg/dL (8.5-10.1); CARBON DIOXIDE 27.2 mmol/L (21-32); CREATININE 0.9 mg/dL (0.6-1.3); POTASSIUM 4.2 mmol/L (3.5-5.1); TOTAL BILIRUBIN 0.3 mg/dL (0.0-1.0); TOTAL PROTEIN, SERUM 6.4 g/dL (6.4-8.2)
[2023-07-07 08:41] LABS: BASOPHILS % (MANUAL) 0 % (0-2); EOSINOPHILS % (MANUAL) 0 % (0-4); LYMPHOCYTES % (MANUAL) 8 % (20-46); MONOCYTES % (MANUAL) 5 % (5-12); PLATELET ESTIMATE ADEQUATE
[2023-07-08] VITALS: BP 124/69; PULSE 98; RESP 18; TEMP 97.6; O2SAT 94
[2023-07-08 07:18] LABS: BASOPHILS % (AUTO) 0.3 % (0.0-2.0); EOSINOPHILS # (AUTO) 0.1 K/uL (0-0.4); EOSINOPHILS % (AUTO) 0.8 % (0.0-4.0); LYMPHOCYTES # (AUTO) 2.2 K/uL (2.5-16.5); LYMPHOCYTES % (AUTO) 19.3 % (20.5-51.1); MEAN CORPUSCULAR HEMOGLOBIN 27 pg (27-31); MEAN CORPUSCULAR HGB CONC 32 g/dL (33-37); MEAN CORPUSCULAR VOLUME 84.6 fL (80-94); MONOCYTES # (AUTO) 0.9 K/uL (0.8-1.0); MONOCYTES % (AUTO) 7.9 % (1.7-9.3); NEUTROPHILS # (AUTO) 8.3 K/uL (1.8-7.7); NEUTROPHILS % (AUTO) 71.7 % (42.2-75.2); PLATELET COUNT (AUTO) 328 K/uL (140-450); RED BLOOD CELL COUNT(AUTO) 4.01 MIL/uL (4.20-5.40); RED CELL DISTRIBUTION WIDTH 14.4 % (11.6-13.7); WHITE BLOOD COUNT (AUTO) 11.6 K/uL (4.8-10.8)
[2023-07-08 07:49] LABS: ALBUMIN 2.6 g/dL (3.4-5.0); ANION GAP 11.8 (8-16); CREATININE 0.8 mg/dL (0.6-1.3); POTASSIUM 3.8 mmol/L (3.5-5.1); TOTAL BILIRUBIN 0.3 mg/dL (0.0-1.0)
[2023-07-08 08:00] VITALS: BP 150/67; PULSE 91; PULSE 93; RESP 18; TEMP 97.5; O2SAT 93; O2SAT 95
[2023-07-08] MEDS ORDERED: SIMETHICONE 80 MG TAB.CHEW PO PRN (12:25)
[2023-07-08 16:00] VITALS: BP 141/81; PULSE 92; PULSE 94; RESP 18; TEMP 98.5; O2SAT 93
[2023-07-08] MEDS ORDERED: AMOX1TAB15 PO (17:13)
[2023-07-08] MEDS ORDERED: ACET-9525 PO (17:13)
[2023-07-08] MEDS ORDERED: ONDA-188 PO (17:15)
[2023-07-08] MEDS ORDERED: SIME80TA41 PO (17:15)
== END 2023-07-08 18:55 | disposition home or self-care (01) | DRG 263 ==
LOC: MED 06:58 → MMU 11:04 → MTU 11:23
PROVIDERS: ADMIT Student in an Organized Health Care Education/Training Program; ATTEND Student in an Organized Health Care Education/Training Program
PROC: 0DNW4ZZ Release Peritoneum, Percutaneous Endoscopic Approach (ICD-10-PCS; 2023-07-06)
PROC: 0FT44ZZ Resection of Gallbladder, Percutaneous Endoscopic Approach (ICD-10-PCS; principal; 2023-07-06 10:30)
DX: K81.0 Acute cholecystitis (principal); K82.A2 Perforation of gallbladder in cholecystitis; K82.A1 Gangrene of gallbladder in cholecystitis; E86.1 Hypovolemia; D72.829 Elevated white blood cell count, unspecified; I10 Essential (primary) hypertension; E66.9 Obesity, unspecified; Z68.37 Body mass index [BMI] 37.0-37.9, adult; Z79.899 Other long term (current) drug therapy
CPT/HCPCS: 36415; 76705; 80048; 80053; 80076; 81001; 83690; 85025; 85610; 85730; 86886; 86900; 86901; 87040; 87081; 88304; 93005; 96361; 96365; 96375; 99285; J0330; J0690; J0696; J1100; J1650; J1885; J2001; J2250; J2270; J2405; J2704; J3010; J3490; J7030; J7060; Q0092